=== PATIENT | female | born 1995 | race Asian ===

== ENCOUNTER 2023-01-21 13:08 | Inpatient (IN) ==
--- NOTE | 2023-01-21 13:31 | ED Triage Note ---
Date of Service January 21, 2023 History of Present Illness This patient was briefly evaluated while in triage. An abbreviated physical exam was performed. This patient is a 27-year-old Female who presents to the ED for evaluation of outpatient hemoglobin of 5.6. She feels fatigued, chest pain, body aches, sy mptoms have been ongoing for about a month. Sent from [facility] [[email or web address] History of blood transfusion 8 months ago. Denies any active bleeding but has had colonoscopy in past. Physical Exam CONSTITUTIONAL: mildly fatigued appearing, otherwise resting comfortably. SKIN: Somewhat pale, warm, dry CARDIAC: regular rate and rhythm RESPIRATORY: in no respiratory distress, lungs clear to auscultation ABDOMEN: No tenderness Initial orders for labs and / or imaging were placed and patient was placed in the waiting area until a bed is available. Please see further documentation for the full ED course.
[2023-01-21 14:12] LABS: Hematocrit (blood only) 19.4 % (37.0-47.0); Hemoglobin 5.6 g/dl (12.0-16.0); Mean Corpuscular Hemoglobin 16.3 pg (25.0-34.0); Mean Corpuscular Hgb Conc 28.9 g/dL (32.0-36.0); Mean Corpuscular Volume 56.4 fL (80.0-100.0); Platelet Count 183 K/uL (130-400); RDW Coefficient of Variation 20.3 % (11.5-14.5); RDW Standard Deviation 38.6 fL (36.4-46.3); Red Blood Count 3.44 M/uL (4.20-5.40); White Blood Count 7.07 K/ul (4.8-10.8)
[2023-01-21 14:22] LABS: INR 1.1 (0.9-1.1); Partial Thromboplastin Ratio 0.8; Partial Thromboplastin Time 23.1 Seconds (21.0-31.0); Prothrombin Time 11.7 Seconds (9.0-12.0)
[2023-01-21 14:30] LABS: Albumin Level 3.9 gm/dl (3.4-5.0); Anion Gap 5 (3-11); Bilirubin,Total 0.4 mg/dl (0.2-1.0); Calcium 8.4 mg/dl (8.6-10.3); Carbon Dioxide 25 mmol/L (21-32); Chloride 106 mmol/L (98-107); Potassium 3.6 mmol/L (3.5-5.1); Sodium 136 mmol/L (136-145)
[2023-01-21 14:36] LABS: Alanine Aminotransferase 8 U/L (7-52); Albumin Globulin Ratio 1.4 (0.9-2); Alkaline Phosphatase 53 U/L (34-104); Aspartate Aminotransferase 20 U/L (13-39); BUN Creatinine Ratio 12.1 (10-20); Blood Urea Nitrogen 8 mg/dl (6-23); Creatinine Clr Calc Pharmacy 82.6 ml/min; Est GFR (African American) 141.3 ml/min; Est GFR (Non-African American) 121.9 ml/min; Globulin 2.8 gm/dl (2.5-4.0); Glucose 79 mg/dl (70-99(Fasting)); Total Protein 6.7 gm/dl (6.0-8.3); Troponin I High Sensitivity < 2.3 pg/ml (0-14)
[2023-01-21 14:37] LABS: Basophils # (auto) 0.02 K/uL (0-0.2); Basophils % (auto) 0.3 %; Eosinophils # (auto) 0.11 K/uL (0-0.50); Eosinophils % (auto) 1.6 %; Hypochromasia Present; Immature Granulocytes # (auto) 0.01 K/uL (0.01-0.20); Immature Granulocytes % (auto) 0.1 %; Lymphocytes # (auto) 1.07 K/uL (1.2-3.4); Lymphocytes % (auto) 15.1 %; Microcytosis Present; Monocytes # (auto) 0.33 K/uL (0.11-0.59); Monocytes % (auto) 4.7 %; Neutrophils # (auto) 5.53 K/uL (1.40-6.50); Neutrophils % (auto) 78.2 %; Ovalocytes 1+; Polychromasia 1+; Tear Drop Cells 1+
--- NOTE | 2023-01-21 15:16 | Electrocardiogram Report ---
Test Reason : Blood Pressure : / mmHG Vent. Rate : 089 BPM Atrial Rate : 089 BPM P-R Int : 128 ms QRS Dur : 068 ms QT Int : 358 ms P-R-T Axes : 047 072 054 degrees QTc Int : 435 ms Poor data quality, interpretation may be adversely affected Normal sinus rhythm Normal ECG No previous ECGs available Confirmed by Pranav Waller ([id number]) on 01/21/2023 3:16:10 PM Referred By: Confirmed By:Pranav Waller
[2023-01-21] MEDS ORDERED: SODIUM CHLORIDE 0.9% 250 ML IV PRN (16:55)
[2023-01-21] MEDS ORDERED: SODIUM CHLORIDE 0.9% 1000ML 1,000 ML IV SCH (17:00)
[2023-01-21] MEDS ORDERED: OPTIRAY 350 100ml IV ONE (17:17)
--- NOTE | 2023-01-21 17:34 | Emergency Department Note ---
Impression & Plan Symptomatic anemia, Cholelithiasis ED Provider Note ED Provider Note NAME: SHAMAR HOANG AGE:27 SEX: Female : 1995 ARRIVES VIA: Private vehicle INFORMANT: Patient ED PROVIDER(s): Laila Brody DO CHIEF COMPLAINT: Abnormal labs, referred by [facility] HPI: This is a 27-year-old female who presents emergency department after being referred here by [facility] due to abnormal outpatient labs showing significant anemia. Patient states she does have a prior history of anemia and states her hemoglobin is usually between 9 and 10. She denies any recent black or bloody stools, heavy periods, frequent nosebleeds, or other bleeding history. Denies any recent trauma. Patient states she did require a blood transfusion several years ago following surgery. She states she has had intermittent chest pain, shortness of breath, and abdominal pain. She denies any recent illness. She states she has been getting lightheaded/dizzy with change in position. Patient states she does have hx of GERD and states an acid reducing medication daily. PAST MEDICAL HISTORY:See Below PAST SURGICAL HISTORY:See Below FAMILY HISTORY:See Below SOCIAL HISTORY:See Below HOME MEDICATIONS:See Below ALLERGIES:See Below VITALS:See Below PHYSICAL EXAMINATION: GENERAL: alert, well appearing, well nourished, no distress, non-toxic EYE EXAM: normal conjunctiva, PERRL and EOM's grossly intact OROPHARYNX: no exudate, no erythema, lips, buccal mucosa, and tongue normal and mucous membranes are moist NECK: supple, no nuchal rigidity, no adenopathy, non-tender LUNGS: Clear to auscultation. Normal chest wall mechanics, no w/r/r HEART: no murmurs, S1 normal and S2 normal ABDOMEN: abdomen soft, non-tender, normo-active bowel sounds, no masses, no rebound or guarding. BACK: Back is symmetrical on inspection and there is no deformity, no midline tenderness, no CVA tenderness. SKIN: no rashes, petechiae, orbruising, pale UPPER EXTREMITIES: upper extremities are grossly normal. FROM, nml pulses b/l. LOWER EXTREMITIES: No pitting edema. FROM, nml pulses b/l. NEURO EXAM: Normal sensorium, cranial nerves II-XII grossly intact, normal speech, no facial droop,nogross weakness of arms, no gross weakness of legs. Gross sensation intact. No ataxia. Vital Signs: reviewed and remarkable Differential Diagnosis: anemia, dehydration, MICHAEL, electrolyte abnormality, GI bleed, abnormal menses, retroperitoneal bleed, occult traumatic injury, as well as others were considered MEDICAL DECISION MAKING: THis is a 27 yo female referred by [facility] due to abnormal outpatient labs revealed significant anemia. Labs drawn and sent, IV established, EKG performed and interpreted by me, and patient placed on tele. Repeat labs here reassuring. We discussed all results at bedside. No obvious source based on discussion with patient. HX of anemia with Hgb 9-10. We discussed CT imaging which was performed and was reassuring. We discussed blood transfusion and patient verbalized understanding and was in agreement. Prior transfusion without complication. Patient signed blood consent at bedside and 2 units pRBC's ordered. CAse discussed with hospitalist for additional evaluation. Consultation(s): 1725: DIscussed with Dr. Joyce for admission. VS stable. Blood ordered. ER Treatment Provided: See below Diagnostics Interpreted By Me: -ECG: NSR at 89, nml axis, nml intervals, no acute ST/T wave changes -Cardiac Monitoring: An order was placed for continuous cardiac monitoring. The monitor shows a rate of 90 with normal sinus rhythm. -Laboratory studies: As stated above and show below. -Imaging studies: [] Triage Nursing Note Reviewed Prior/Outside Records Reviewed Critical Care: Critical care of 35 min performed to assess and manage high likelihood of life- threatening anemia, involving labs and imaging performed with assessment to evaluate anemia diagnosis with frequent reassessment. This time includes bedside time, treatment discussions with patient/family/consultants, documentati on time and excludes procedure time. Past Med/Surg History Surgical History (Updated 01/21/23 @ 18:29 by Sanjay Joyce MD) History of appendectomy S/P partial resection of colon Allergies Allergies Allergy/AdvReac Type Severity Reaction Status Date / Time No Known Allergies Allergy Verified 01/21/23 18:02 Home Meds Home Medications Medication Instructions Recorded Confirmed Acid Ethnoarchaeology Professor Tablet 1 tab PO DIRECTED PRN 01/21/23 01/21/23 HEARTBURN/INDIGESTION Results & Data (ED) Vital Signs Vital Signs - 24 hr 01/21/23 13:25 01/21/23 15:42 01/21/23 15:51 Temperature 36.8 C Temperature Source Temporal Artery Scan Pulse Rate 102 H 87 Pulse Rate [Apical] 90 Pulse Rhythm Pulse Rhythm [Apical] Regular Pulse Strength Pulse Strength [Apical] Normal Respiratory Rate 18 18 Respiratory Effort / Characteristics Non-Labored Respiratory Depth Normal Respiratory Pattern Regular Blood Pressure 100/55 L Blood Pressure [Left Arm] 120/71 Blood Pressure Mean 70 Blood Pressure Mean [Left Arm] 87 Pulse Oximetry 99 100 Oxygen Delivery Method Room Air Room Air Oxygen Flow Rate Sepsis Recent Fever Within 48 Hours No Sepsis New/Unexplained Change in Mental Status No Sepsis Action Taken by Nursing No Action Required 01/21/23 17:51 01/21/23 17:58 01/21/23 18:15 Temperature 37.1 C 37.1 C 37.0 C Temperature Source Oral Oral Oral Pulse Rate 102 H 106 H Pulse Rate [Apical] 98 H Pulse Rhythm Pulse Rhythm [Apical] Pulse Strength Pulse Strength [Apical] Respiratory Rate 20 17 17 Respiratory Effort / Characteristics Non-Labored Spontaneous Respiratory Depth Normal Respiratory Pattern Blood Pressure 107/68 114/77 Blood Pressure [Left Arm] 107/68 Blood Pressure Mean 81 89 Blood Pressure Mean [Left Arm] 81 Pulse Oximetry 100 100 100 Oxygen Delivery Method Room Air Oxygen Flow Rate 0 Sepsis Recent Fever Within 48 Hours Sepsis New/Unexplained Change in Mental Status Sepsis Action Taken by Nursing 01/21/23 16:00 01/21/23 16:30 01/21/23 18:30 Temperature 36.8 C Temperature Source Oral Pulse Rate 86 91 H 105 H Pulse Rate [Apical] Pulse Rhythm Regular Pulse Rhythm [Apical] Pulse Strength Normal Pulse Strength [Apical] Respiratory Rate 19 20 20 Respiratory Effort / Characteristics Respiratory Depth Respiratory Pattern Blood Pressure 101/64 111/75 121/76 Blood Pressure [Left Arm] Blood Pressure Mean 76 87 91 Blood Pressure Mean [Left Arm] Pulse Oximetry 100 100 100 Oxygen Delivery Method Oxygen Flow Rate Sepsis Recent Fever Within 48 Hours Sepsis New/Unexplained Change in Mental Status Sepsis Action Taken by Nursing 01/21/23 20:42 01/21/23 19:00 01/21/23 20:04 Temperature 37.6 C H 36.9 C Temperature Source Oral Oral Pulse Rate 99 H 102 H 99 H Pulse Rate [Apical] Pulse Rhythm Regular Pulse Rhythm [Apical] Pulse Strength Normal Pulse Strength [Apical] Respiratory Rate 23 19 Respiratory Effort / Characteristics Respiratory Depth Respiratory Pattern Blood Pressure 112/72 113/76 Blood Pressure [Left Arm] Blood Pressure Mean 85 88 Blood Pressure Mean [Left Arm] Pulse Oximetry 100 100 Oxygen Delivery Method Oxygen Flow Rate Sepsis Recent Fever Within 48 Hours Sepsis New/Unexplained Change in Mental Status Sepsis Action Taken by Nursing 01/21/23 20:00 01/21/23 20:38 01/21/23 20:58 Temperature 37.6 C H 37.7 C H Temperature Source Oral Oral Pulse Rate 96 H 92 H 94 H Pulse Rate [Apical] Pulse Rhythm Regular Regular Pulse Rhythm [Apical] Pulse Strength Normal Normal Pulse Strength [Apical] Respiratory Rate 18 23 18 Respiratory Effort / Characteristics Respiratory Depth Respiratory Pattern Blood Pressure 115/79 112/72 108/63 Blood Pressure [Left Arm] Blood Pressure Mean 91 85 78 Blood Pressure Mean [Left Arm] Pulse Oximetry 100 100 100 Oxygen Delivery Method Oxygen Flow Rate Sepsis Recent Fever Within 48 Hours Sepsis New/Unexplained Change in Mental Status Sepsis Action Taken by Nursing 01/21/23 21:14 Temperature 38.0 C H Temperature Source Oral Pulse Rate 94 H Pulse Rate [Apical] Pulse Rhythm Regular Pulse Rhythm [Apical] Pulse Strength Normal Pulse Strength [Apical] Respiratory Rate 19 Respiratory Effort / Characteristics Respiratory Depth Respiratory Pattern Blood Pressure 119/79 Blood Pressure [Left Arm] Blood Pressure Mean 92 Blood Pressure Mean [Left Arm] Pulse Oximetry 100 Oxygen Delivery Method Oxygen Flow Rate Sepsis Recent Fever Within 48 Hours Sepsis New/Unexplained Change in Mental Status Sepsis Action Taken by Nursing Laboratory Data 01/21/23 13:49 01/21/23 13:49 Lab Results 01/21/23 01/21/23 01/21/23 Range/Units 13:49 13:49 13:49 WBC 7.07 (4.8-10.8) K/ul RBC 3.44 L (4.20-5.40) M/uL Hgb 5.6 L* (12.0-16.0) g/dl Hct 19.4 L* (37.0-47.0) % MCV 56.4 L (80.0-100.0) fL MCH 16.3 L (25.0-34.0) pg MCHC 28.9 L (32.0-36.0) g/dL RDW Std Deviation 38.6 (36.4-46.3) fL RDW Coeff of Dorys 20.3 H (11.5-14.5) % Plt Count 183 (130-400) K/uL Immature Gran % (Auto) 0.1 % Neut % (Auto) 78.2 % Lymph % (Auto) 15.1 % Monroe % (Auto) 4.7 % Eos % (Auto) 1.6 % Baso % (Auto) 0.3 % Neut # (Auto) 5.53 (1.40-6.50) K/uL Lymph # (Auto) 1.07 L (1.2-3.4) K/uL Monroe # (Auto) 0.33 (0.11-0.59) K/uL Eos # (Auto) 0.11 (0-0.50) K/uL Baso # (Auto) 0.02 (0-0.2) K/uL Immature Gran # (Auto) 0.01 (0.01-0.20) K/uL Polychromasia 1+ Hypochromasia Present Microcytosis Present Tear Drop Cells 1+ Ovalocytes 1+ PT 11.7 (9.0-12.0) Seconds INR 1.1 (0.9-1.1) APTT 23.1 (21.0-31.0) Seconds PTT Ratio 0.8 Sodium (136-145) mmol/L Potassium (3.5-5.1) mmol/L Chloride (98-107) mmol/L Carbon Dioxide (21-32) mmol/L Anion Gap (3-11) BUN (6-23) mg/dl Creatinine (0.6-1.2) mg/dl Est Cr Clr Drug Dosing ml/min Est GFR ( Amer) ml/min Est GFR (Non-Af Amer) ml/min BUN/Creatinine Ratio (10-20) Glucose (70-99(Fasting)) mg/dl Calcium (8.6-10.3) mg/dl Total Bilirubin (0.2-1.0) mg/dl AST (13-39) U/L ALT (7-52) U/L Alkaline Phosphatase (34-104) U/L Troponin I High Sens (0-14) pg/ml Total Protein (6.0-8.3) gm/dl Albumin (3.4-5.0) gm/dl Globulin (2.5-4.0) gm/dl Albumin/Globulin Ratio (0.9-2) POC Ur Test (NEG) SARS-CoV-2 (PCR) (Negative) Influenza Type A (PCR) (Neg) Influenza Type B (PCR) (Neg) RSV (RT-PCR) (Neg) Blood Type O Positive Blood Type Recheck Antibody Screen NEGATIVE Crossmatch See Detail 01/21/23 01/21/23 01/21/23 Range/Units 13:49 14:04 18:07 WBC (4.8-10.8) K/ul RBC (4.20-5.40) M/uL Hgb (12.0-16.0) g/dl Hct (37.0-47.0) % MCV (80.0-100.0) fL MCH (25.0-34.0) pg MCHC (32.0-36.0) g/dL RDW Std Deviation (36.4-46.3) fL RDW Coeff of Dorys (11.5-14.5) % Plt Count (130-400) K/uL Immature Gran % (Auto) % Neut % (Auto) % Lymph % (Auto) % Monroe % (Auto) % Eos % (Auto) % Baso % (Auto) % Neut # (Auto) (1.40-6.50) K/uL Lymph # (Auto) (1.2-3.4) K/uL Monroe # (Auto) (0.11-0.59) K/uL Eos # (Auto) (0-0.50) K/uL Baso # (Auto) (0-0.2) K/uL Immature Gran # (Auto) (0.01-0.20) K/uL Polychromasia Hypochromasia Microcytosis Tear Drop Cells Ovalocytes PT (9.0-12.0) Seconds INR (0.9-1.1) APTT (21.0-31.0) Seconds PTT Ratio Sodium 136 (136-145) mmol/L Potassium 3.6 (3.5-5.1) mmol/L Chloride 106 (98-107) mmol/L Carbon Dioxide 25 (21-32) mmol/L Anion Gap 5 (3-11) BUN 8 (6-23) mg/dl Creatinine 0.66 (0.6-1.2) mg/dl Est Cr Clr Drug Dosing 82.6 ml/min Est GFR ( Amer) 141.3 ml/min Est GFR (Non-Af Amer) 121.9 ml/min BUN/Creatinine Ratio 12.1 (10-20) Glucose 79 (70-99(Fasting)) mg/dl Calcium 8.4 L (8.6-10.3) mg/dl Total Bilirubin 0.4 (0.2-1.0) mg/dl AST 20 (13-39) U/L ALT 8 (7-52) U/L Alkaline Phosphatase 53 (34-104) U/L Troponin I High Sens < 2.3 (0-14) pg/ml Total Protein 6.7 (6.0-8.3) gm/dl Albumin 3.9 (3.4-5.0) gm/dl Globulin 2.8 (2.5-4.0) gm/dl Albumin/Globulin Ratio 1.4 (0.9-2) POC Ur Test NEG (NEG) SARS-CoV-2 (PCR) NEGATIVE (Negative) Influenza Type A (PCR) Negative (Neg) Influenza Type B (PCR) Negative (Neg) RSV (RT-PCR) Negative (Neg) Blood Type Blood Type Recheck Antibody Screen Crossmatch 01/21/23 Range/Units 20:34 WBC (4.8-10.8) K/ul RBC (4.20-5.40) M/uL Hgb (12.0-16.0) g/dl Hct (37.0-47.0) % MCV (80.0-100.0) fL MCH (25.0-34.0) pg MCHC (32.0-36.0) g/dL RDW Std Deviation (36.4-46.3) fL RDW Coeff of Dorys (11.5-14.5) % Plt Count (130-400) K/uL Immature Gran % (Auto) % Neut % (Auto) % Lymph % (Auto) % Monroe % (Auto) % Eos % (Auto) % Baso % (Auto) % Neut # (Auto) (1.40-6.50) K/uL Lymph # (Auto) (1.2-3.4) K/uL Monroe # (Auto) (0.11-0.59) K/uL Eos # (Auto) (0-0.50) K/uL Baso # (Auto) (0-0.2) K/uL Immature Gran # (Auto) (0.01-0.20) K/uL Polychromasia Hypochromasia Microcytosis Tear Drop Cells Ovalocytes PT (9.0-12.0) Seconds INR (0.9-1.1) APTT (21.0-31.0) Seconds PTT Ratio Sodium (136-145) mmol/L Potassium (3.5-5.1) mmol/L Chloride (98-107) mmol/L Carbon Dioxide (21-32) mmol/L Anion Gap (3-11) BUN (6-23) mg/dl Creatinine (0.6-1.2) mg/dl Est Cr Clr Drug Dosing ml/min Est GFR ( Amer) ml/min Est GFR (Non-Af Amer) ml/min BUN/Creatinine Ratio (10-20) Glucose (70-99(Fasting)) mg/dl Calcium (8.6-10.3) mg/dl Total Bilirubin (0.2-1.0) mg/dl AST (13-39) U/L ALT (7-52) U/L Alkaline Phosphatase (34-104) U/L Troponin I High Sens (0-14) pg/ml Total Protein (6.0-8.3) gm/dl Albumin (3.4-5.0) gm/dl Globulin (2.5-4.0) gm/dl Albumin/Globulin Ratio (0.9-2) POC Ur Test (NEG) SARS-CoV-2 (PCR) (Negative) Influenza Type A (PCR) (Neg) Influenza Type B (PCR) (Neg) RSV (RT-PCR) (Neg) Blood Type Blood Type Recheck O Positive Antibody Screen Crossmatch Administered Medications Acetaminophen (Acetaminophen 325 Mg Tab) 650 mg PO Q6H PRN PRN Reason: pain, before xfusion Stop: 02/20/23 21:29 Last Admin: 01/21/23 21:29 Dose: 650 mg Documented By: OAM Sodium Chloride (Nss 1000ml) 1,000 mls @ 80 mls/hr IV .[id number] MORALES Stop: 02/20/23 16:59 Last Admin: 01/21/23 17:50 Dose: 80 mls/hr Documented By: LKD Discontinued Medications Famotidine 20 mg/ Syringe 5 mls @ 2.5 mls/min IV NOW ONE Stop: 01/21/23 18:31 Last Admin: 01/21/23 18:59 Dose: 2.5 mls/min Documented By: MAURO Ioversol (Optiray 350 100ml) 82 ml IV ONCE ONE Stop: 01/21/23 17:18 Last Admin: 01/21/23 17:17 Dose: 82 ml Documented By: [facility] Imaging Data Radiologist's Impression: Abdomen/Pelvis CT 01/21/23 16:[address] WITH IV CONTRAST CT DOSE: 235.09 mGy.cm HISTORY: Acute anemia with generalized abdominal pain anemia, abd pain TECHNIQUE: Multiaxial CT images of the abdomen and pelvis were performed fo llowing the IV administration of 82 cc of Optiray, A dose lowering technique was utilized adhering to the principles of ALARA. COMPARISON STUDY: None. FINDINGS: Clear lung bases. No pneumatosis or pneumoperitoneum. The spleen is mildly enlarged measuring up to 13 cm. Unremarkable pancreas, adrenal glands and liver. Patency of the hepatic and portal veins. Stone filled gallbladder. 1.2 cm stone noted within the gallbladder neck/proximal cystic duct. The gallbladder is distended. No significant wall thickening or pericholecystic fluid. There is mild intrahepatic biliary ductal prominence. The common bile duct measures 6 mm. No choledocholithiasis identified. Unremarkable kidneys. No hydronephrosis. Urinary bladder wall thickening with partial distention. Unremarkable uterus. Cystic foci of the left ovary measuring up to 2.7 cm. Probable associated hydrosalpinx. Aorta and IVC are unremarkable. No lymphadenopathy identified. Postoperative changes of the bowel with evidence of prior resection. Trace free pelvic fluid. The appendix is reportedly surgically absent. No acute fracture. 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 IMPRESSION: 1. No bowel obstruction or bowel wall thickening. 2. Stone filled distended gallbladder with large stone within the gallbladder neck/proximal cystic duct. Correlation with right upper quadrant abdominal ultrasound recommended to exclude developing acute cholecystitis. 3. Mild intrahepatic biliary ductal prominence with the common bile duct measuring within the upper limits of normal. No choledocholithiasis identified. 3. Mild splenomegaly. 4. Postoperative changes of the bowel. 5. Left ovarian cyst/follicles with probable hydrosalpinx. ACT 112: Negative or not required by law. The above report was generated using voice recognition software. It may contain grammatical, syntax or spelling errors. Electronically signed by: Vazquez Oliveira M.D. 01/21/2023 5:33 PM Discharge Plan Visit Data Chief Complaint: Abnormal Labs/Diagnostic Testing Stated Complaint: WEAKNESS,DIZZINESS, [facility] REF OVER ED Provider: Laila Brody Discharge Problem: Symptomatic anemia, Cholelithiasis Patient Disposition: Being Evaluated by Hospitalist Forms Stand Alone Forms: [facility] Prescriptions Prescriptions: No Action Acid Ethnoarchaeology Professor Tablet 1 tab PO DIRECTED PRN (Reason: HEARTBURN/INDIGESTION) Rx Instructions: PER PT "BROUGHT MEDICINE FROM HOME, MARKO". PT UNSURE WHICH FIRST CRUSHER OR WHICH STRENGTH OF MEDICATION. Referrals Referrals: [facility] [Primary Care Provider] -
--- NOTE | 2023-01-21 17:35 | CT Scan Report ---
ABDOMEN AND PELVIS CT WITH IV CONTRAST CT DOSE: 235.09 mGy.cm HISTORY: Acute anemia with generalized abdominal pain anemia, abd pain TECHNIQUE: Multiaxial CT images of the abdomen and pelvis were performed following the IV administrat ion of 82 cc of Optiray, A dose lowering technique was utilized adhering to the principles of ALARA. COMPARISON STUDY: None. FINDINGS: Clear lung bases. No pneumatosis or pneumoperitoneum. The spleen is mildly enlarged measuri ng up to 13 cm. Unremarkable pancreas, adrenal glands and liver. Patency of the hepatic and portal ve ins. Stone filled gallbladder. 1.2 cm stone noted within the gallbladder neck/proximal cystic duct. T he gallbladder is distended. No significant wall thickening or pericholecystic fluid. There is mild i ntrahepatic biliary ductal prominence. The common bile duct measures 6 mm. No choledocholithiasis esequiel ntified. Unremarkable kidneys. No hydronephrosis. Urinary bladder wall thickening with partial distention. Unr emarkable uterus. Cystic foci of the left ovary measuring up to 2.7 cm. Probable associated hydrosalp inx. Aorta and IVC are unremarkable. No lymphadenopathy identified. Postoperative changes of the bowel with evidence of prior resection. Trace free pelvic fluid. The arina endix is reportedly surgically absent. No acute fracture. Minimal avascular necrosis of the femoral h manuelito. IMPRESSION: 1. No bowel obstruction or bowel wall thickening. 2. Stone filled distended gallbladder with large stone within the gallbladder neck/proximal cystic du ct. Correlation with right upper quadrant abdominal ultrasound recommended to exclude developing acut e cholecystitis. 3. Mild intrahepatic biliary ductal prominence with the common bile duct measuring within the upper l imits of normal. No choledocholithiasis identified. 3. Mild splenomegaly. 4. Postoperative changes of the bowel. 5. Left ovarian cyst/follicles with probable hydrosalpinx. ACT 112: Negative or not required by law. The above report was generated using voice recognition software. It may contain grammatical, syntax o r spelling errors. Electronically signed by: Vazquez Oliveira M.D. 01/21/2023 5:33 PM
--- NOTE | 2023-01-21 18:15 | History & Physical Report ---
Date of Service January 21, 2023 Assessment & Plan (1) Symptomatic anemia: Plan: Chronic anemia Patient denies melena/bright red blood per rectum, epistaxis and other bleeding CTA/P without signs of acute bleeding. Stone filled gallbladder without evidence of acute obstruction. No transaminitis, no right upper quadrant tenderness on exam. No signs of extravasation or active bleeding. Profoundly microcytic Vegetarian diet, has previously been on iron and has required blood transfusions but had stopped iron due to constipation/stomach intolerance Is with splenomegaly, no known history of G6PD/hemoglobinopathies. Peripheral smear pending Does have epigastric tenderness to palpation, and reports she has had liquid brown and sometimes foamy diarrhea in the last week Occult stool pending Continue PPI will increase to twice daily as needed 2 units ordered for transfusion, H&H between units Hemoglobin transfusion threshold 7.0 Given that she is having some lightheadedness and dizziness but is otherwise asymptomatic at 5.6 suspect that this has developed over a long period of time Iron studies pending, will likely benefit her from serial Venofer infusions while inpatient. B12/folate pending (2) GERD (gastroesophageal reflux disease): Plan DVT prophylaxis: Pharmacal prophylaxis contraindicated in setting of bleed Diet: Clears Disposition: PCU for severe symptomatic anemia CODE STATUS: Full code History of Present Illness Primary Care Provider: [facility] Meeta is a 27-year-old female with a past medical history of chronic anemia who presents with lightheadedness and who was referred for a hemoglobin less than 7 on an outpatient check by [facility]. 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 Is from [facility] where all her prior medical care was. Has only been in [place] for 2 months. PReviously recieved blood 3x. 1x after surgery, 2x in the past but does not see hematology. Per pt had not had an enemia workup in the past. Has a history of appendectomy, reportedly had a bowel neck during surgery which required a partial colon resection which was otherwise uncomplicated but did require 1 unit of blood to be given at that time. Outside of surgery she has required 2 blood transfusions for chronic anemia. She reports she was on iron previously, but has taken this intermittently and not recently due to stomach intolerance. She has not had any syncope or chest pain, but has felt lightheaded for about 1 month. She has had foamy brown diarrhea for 1 week, but no melena or blood. She does have epigastric tenderness. She is a vegetarian does not eat meat. She denies shortness of breath, difficulty breathing. No numbness/tingling. Denies other medical problems and chronic medications. Medical History: Reviewed Medications: Reviewed Surgical History: Reviewed Family history: Reviewed Allergies: Reviewed Social History: No tobacco/alcohol use Code Status: Full code Allergies Allergy/AdvReac Type Severity Reaction Status Date / Time No Known Allergies Allergy Verified 01/21/23 18:02 Home Medications Medication Instructions Recorded Confirmed Type Acid Director Of Corporate Communications Tablet 1 tab PO DIRECTED PRN 01/21/23 01/21/23 History HEARTBURN/INDIGESTION Past Med/Surg History Surgical History (Updated 01/21/23 @ 18:29 by Sanjay Joyce MD) History of appendectomy S/P partial resection of colon Review of Systems Review of Systems: All systems reviewed & are unremarkable except as noted in HPI & below Physical Exam Physical Exam: General: A&Ox3. NAD. Cooperative. HEENT: Atraumatic, normocephalic. Pale. Eom intact. vision/hearing intact Pulm: CTAB A&P. -wheezes, -rales, -rhonchi. Symmetrical chest rise. No increased work of breathing. No respiratory distress. Cardiac: RRR, -mrg. Radial pulses intact and symmetrical. Abdominal: +epigastric ttp. otherwise Nontender, nondistended, soft. BS present. Ext: warm, dry. Moves all extremities equally Results & Data Results & Data Vital Signs (Past 12 Hours) Vital Signs Temp Pulse Pulse Resp BP BP Pulse Ox 01/21/23 17:58 37.1 C 102 H 17 107/68 100 01/21/23 17:51 37.1 C 98 H 20 107/68 100 01/21/23 15:51 87 01/21/23 15:42 90 18 120/71 100 01/21/23 13:25 36.8 C 102 H 18 100/55 L 99 O2 Del Method O2 Flow Rate 01/21/23 17:58 0 01/21/23 17:51 Room Air 01/21/23 15:51 01/21/23 15:42 Room Air 01/21/23 13:25 Room Air PG Care Time/CCT Total # of Minutes Spent Total Time Spent with Patient: Total time spent is greater than 50% in coordination of care (as documented) at patient's floor/unit and/or counseling patient: Coding Level of Care Code 54249 INT INP/OBS CARE Diagnoses Symptomatic anemia D64.9 GERD (gastroesophageal reflux disease) K21.9
[2023-01-21] MEDS ORDERED: FAMOTIDINE 20 MG in SYRINGE 3 ML IV ONE (18:30)
[2023-01-21 19:37] LABS: Influenza A virus by PCR Negative (Neg); Influenza B virus by PCR Negative (Neg); RSV by PCR Negative (Neg); SARS CoV2 RNA(COVID-19) Ceph NEGATIVE (Negative)
[2023-01-21] MEDS ORDERED: ACETAMINOPHEN 325 MG TAB PO PRN (21:23)
[2023-01-21 22:31] LABS: Hemoglobin 8.4 g/dl (12.0-16.0)
[2023-01-21 23:01] LABS: Albumin Level 3.8 gm/dl (3.4-5.0); Bilirubin Direct 0.4 mg/dl (0-0.2); Bilirubin,Total 1.7 mg/dl (0.2-1.0); Total Protein 6.6 gm/dl (6.0-8.3)
[2023-01-21] MEDS: PANTOprazole 40 MG in SYRINGE 0 ML IV SCH (23:42)
[2023-01-21 23:43] LABS: Reticulocyte % 0.7 % (0.5-2.0); Reticulocytes # 0.03 10^6/uL (0.02-0.10)
[2023-01-22 02:26] LABS: Ferritin 1.7 ng/ml (8-388)
[2023-01-22 02:55] LABS: Iron < 10 mcg/dl (35-150); Unsaturated Iron Binding Cap 443 mcg/dl (155-355)
[2023-01-22 04:44] LABS: Hematocrit (blood only) 24.5 % (37.0-47.0); Hemoglobin 7.6 g/dl (12.0-16.0)
[2023-01-22 05:01] LABS: BUN Creatinine Ratio 7.4 (10-20); Calcium 8.2 mg/dl (8.6-10.3); Creatinine Clr Calc Pharmacy 80.2 ml/min; Est GFR (African American) 139.9 ml/min; Est GFR (Non-African American) 120.7 ml/min; Potassium 3.6 mmol/L (3.5-5.1)
--- NOTE | 2023-01-22 07:47 | Hospitalist Progress Note ---
Date of Service January 22, 2023 Assessment & Plan (1) Symptomatic anemia: (2) GERD (gastroesophageal reflux disease): Plan Chronic anemia Patient denies melena/bright red blood per rectum, epistaxis and other bleeding CTA/P without signs of acute bleeding. Stone filled gallbladder without evidence of acute obstruction. No transaminitis, no right upper quadrant tenderness on exam. No signs of extravasation or active bleeding. Profoundly microcytic Vegetarian diet, has previously been on iron and has required blood transfusions but had stopped iron due to constipation/stomach intolerance Is with splenomegaly, no known history of G6PD/hemoglobinopathies. Peripheral smear pending Does have epigastric tenderness to palpation, and reports she has had liquid brown and sometimes foamy diarrhea in the last week Occult stool pending Continue PPI will increase to twice daily as needed 2 units ordered for transfusion, H&H between units Hemoglobin transfusion threshold 7.0 Given that she is having some lightheadedness and dizziness but is otherwise asymptomatic at 5.6 suspect that this has developed over a long period of time. Iron studies revealed a low iron and low ferritin. Will start on Venofer 300 mg B12/folate normal. DVT prophylaxis: Pharmacal prophylaxis contraindicated in setting of bleed Diet: Clears Disposition: PCU for severe symptomatic anemia CODE STATUS: Full code Admission and Anticipated Discharge Date Admission Date: January 21, 2023 Subjective Patient was seen bedside this morning. States that she had anemia before and has been occurring every so often since her abdominal surgery in 2012. She states that she used to take iron supplements but stopped taking them due to having dark stool as well and hard stool that was difficult to pass. She tries to supplement iron in her diet. Last blood transfusion was 4 to 5 years ago. Today she states that she feels weak and tired. No other issues or concerns at this time. Review of Systems Review of Systems: All systems reviewed & are unremarkable except as noted in Subjective Physical Exam Constitutional: WD/WN, vitals as above Eyes: PERRL, conjunctivae normal, anicteric sclerae ENMT: external ear and nose normal, oropharynx normal Respiratory: normal respiratory effort, lungs clear to auscultation Cardiovascular: RRR, no murmur, no edema Gastrointestinal (Abdomen): Inspection/Auscultation: normal bowel sounds Percussion/Palpation: abdomen soft; abdomen nontender Multiple well-healing surgery scars on the abdominal wall Musculoskeletal: no cyanosis or clubbing, extremities motor strength 5/5 Skin: no rashes, warm and dry Psychiatric: A+Ox3, euthymic affect Results & Data Results & Data Vital Signs (Past 12 Hours) Vital Signs Temp Pulse Pulse Resp BP BP Pulse Ox 01/22/23 06:57 36.8 C 72 17 94/59 L 99 01/22/23 04:17 36.7 C 75 15 96/64 L 100 01/22/23 02:50 100 H 01/21/23 22:39 37.5 C 93 H 18 108/72 100 01/21/23 22:30 37.3 C 81 20 108/72 100 01/21/23 21:14 38.0 C H 94 H 19 119/79 100 01/21/23 20:58 37.7 C H 94 H 18 108/63 100 01/21/23 20:38 37.6 C H 92 H 23 112/72 100 01/21/23 20:00 96 H 18 115/79 100 01/21/23 20:04 99 H 01/21/23 20:42 37.6 C H 99 H 23 112/72 100 O2 Del Method 01/22/23 06:57 Room Air 01/22/23 04:17 Room Air 01/22/23 02:50 01/21/23 22:39 Room Air 01/21/23 22:30 Room Air 01/21/23 21:14 01/21/23 20:58 01/21/23 20:38 01/21/23 20:00 01/21/23 20:04 01/21/23 20:42
[2023-01-22] MEDS: PANTOprazole 40 MG in SYRINGE 0 ML IV SCH (09:04)
[2023-01-22] MEDS ORDERED: IRON SUCROSE 300 MG in SODIUM CHLORIDE 0.9% 250 ML IV ONE (11:00)
[2023-01-22 11:28] LABS: Hematocrit (blood only) 25.5 % (37.0-47.0); Hemoglobin 7.8 g/dl (12.0-16.0)
--- NOTE | 2023-01-22 17:24 | Discharge Summary ---
Date of Service January 22, 2023 Admission HPI Per Admitting Provider Meeta is a 27-year-old female with a past medical history of chronic anemia who presents with lightheadedness and who was referred for a hemoglobin less than 7 on an outpatient check by [employer]. 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 Is from [facility] where all her prior medical care was. Has only been in [place] for 2 months. PReviously recieved blood 3x. 1x after surgery, 2x in the past but does not see hematology. Per pt had not had an enemia workup in the past. Has a history of appendectomy, reportedly had a bowel neck during surgery which required a partial colon resection which was oth erwise uncomplicated but did require 1 unit of blood to be given at that time. Outside of surgery she has required 2 blood transfusions for chronic anemia. She reports she was on iron previously, but has taken this intermittently and not recently due to stomach intolerance. She has not had any syncope or chest pain, but has felt lightheaded for about 1 month. She has had foamy brown diarrhea for 1 week, but no melena or blood. She does have epigastric tenderness. She is a vegetarian does not eat meat. She denies shortness of breath, difficulty breathing. No numbness/tingling. Denies other medical problems and chronic medications. Medical History: Reviewed Medications: Reviewed Surgical History: Reviewed Family history: Reviewed Allergies: Reviewed Social History: No tobacco/alcohol use Code Status: Full code Admission Exam Per Admitting Provider General: A&Ox3. NAD. Cooperative. HEENT: Atraumatic, normocephalic. Pale. Eom intact. vision/hearing intact Pulm: CTAB A&P. -wheezes, -rales, -rhonchi. Symmetrical chest rise. No increased work of breathing. No respiratory distress. Cardiac: RRR, -mrg. Radial pulses intact and symmetrical. Abdominal: +epigastric ttp. otherwise Nontender, nondistended, soft. BS present. Ext: warm, dry. Moves all extremities equally Principal Diagnosis Chronic Anemia Discharge Exam Constitutional: WD/WN, vitals as above Eyes: PERRL, conjunctivae normal, anicteric sclerae ENMT: external ear and nose normal, oropharynx normal Respiratory: normal respiratory effort, lungs clear to auscultation Cardiovascular: RRR, no murmur, no edema Gastrointestinal (Abdomen): Inspection/Auscultation: normal bowel sounds Percussion/Palpation: abdomen soft; abdomen nontender Multiple well-healing surgery scars on the abdominal wall Musculoskeletal: no cyanosis or clubbing, extremities motor strength 5/5 Skin: no rashes, warm and dry Psychiatric: A+Ox3, euthymic affect Discharge Data Allergies Allergy/AdvReac Type Severity Reaction Status Date / Time No Known Allergies Allergy Verified 01/21/23 18:02 Consultations 01/21/23 18:22 ED Decision to Admit Stat Procedures Performed Abdomen/Pelvis CT 01/21/23 16:[address] WITH IV CONTRAST CT DOSE: 235.09 mGy.cm HISTORY: Acute anemia with generalized abdominal pain anemia, abd pain TECHNIQUE: Multiaxial CT images of the abdomen and pelvis were performed following the IV administration of 82 cc of Optiray, A dose lowering technique was utilized adhering to the principles of ALARA. COMPARISON STUDY: None. FINDINGS: Clear lung bases. No pneumatosis or pneumoperitoneum. The spleen is mildly enlarged measuring up to 13 cm. Unremarkable pancreas, adrenal glands and liver. Patency of the hepatic and portal veins. Stone filled gallbladder. 1.2 cm stone noted within the gallbladder neck/proximal cystic duct. The gallbladder is distended. No significant wall thickening or pericholecystic fluid. There is mild intrahepatic biliary ductal prominence. The common bile duct measures 6 mm. No choledocholithiasis identified. Unremarkable kidneys. No hydronephrosis. Urinary bladder wall thickening with partial distention. Unremarkable uterus. Cystic foci of the left ovary measuring up to 2.7 cm. Probable associated hydrosalpinx. Aorta and IVC are unremarkable. No lymphadenopathy identified. Postoperative changes of the bowel with evidence of prior resection. Trace free pelvic fluid. The appendix is reportedly surgically absent. No acute fracture. 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 IMPRESSION: 1. No bowel obstruction or bowel wall thickening. 2. Stone filled distended gallbladder with large stone within the gallbladder neck/proximal cystic duct. Correlation with right upper quadrant abdominal ultrasound recommended to exclude developing acute cholecystitis. 3. Mild intrahepatic biliary ductal prominence with the common bile duct m easuring within the upper limits of normal. No choledocholithiasis identified. 3. Mild splenomegaly. 4. Postoperative changes of the bowel. 5. Left ovarian cyst/follicles with probable hydrosalpinx. ACT 112: Negative or not required by law. The above report was generated using voice recognition software. It may contain grammatical, syntax or spelling errors. Electronically signed by: Vazquez Oliveira M.D. 01/21/2023 5:33 PM Ordered Studies Abnormal lab results 01/21/23 01/21/23 01/21/23 Range/Units 13:49 13:49 22:15 Hgb 8.4 L (12.0-16.0) g/dl Hct 28.0 L (37.0-47.0) % Chloride (98-107) mmol/L BUN (6-23) mg/dl BUN/Creatinine Ratio (10-20) Calcium (8.6-10.3) mg/dl Iron < 10 L (35-150) mcg/dl Unsaturated IBC 443 H (155-355) mcg/dl Ferritin 1.7 L (8-388) ng/ml Total Bilirubin (0.2-1.0) mg/dl Direct Bilirubin (0-0.2) mg/dl Crossmatch See Detail 01/21/23 01/22/23 01/22/23 Range/Units 22:15 04:25 04:25 Hgb 7.6 L (12.0-16.0) g/dl Hct 24.5 L (37.0-47.0) % Chloride 108 H (98-107) mmol/L BUN 5 L (6-23) mg/dl BUN/Creatinine Ratio 7.4 L (10-20) Calcium 8.2 L (8.6-10.3) mg/dl Iron (35-150) mcg/dl Unsaturated IBC (155-355) mcg/dl Ferritin (8-388) ng/ml Total Bilirubin 1.7 H D (0.2-1.0) mg/dl Direct Bilirubin 0.4 H (0-0.2) mg/dl Crossmatch 01/22/23 Range/Units 10:34 Hgb 7.8 L (12.0-16.0) g/dl Hct 25.5 L (37.0-47.0) % Chloride (98-107) mmol/L BUN (6-23) mg/dl BUN/Creatinine Ratio (10-20) Calcium (8.6-10.3) mg/dl Iron (35-150) mcg/dl Unsaturated IBC (155-355) mcg/dl Ferritin (8-388) ng/ml Total Bilirubin (0.2-1.0) mg/dl Direct Bilirubin (0-0.2) mg/dl Crossmatch 01/21/23 16:55 CT Abd and Pelvis [CT abd pelvis IV con only] Stat Hospital Course (1) Symptomatic anemia: (2) GERD (gastroesophageal reflux disease): Plan Severe Chronic anemia Patient denies melena/bright red blood per rectum, epistaxis and other bleeding CTA/P without signs of acute bleeding. Stone filled gallbladder without evidence of acute obstruction. No transaminitis, no right upper quadrant tenderness on exam. No signs of extravasation or active bleeding. Hemoglobin 5.6 and profoundly microcytic Vegetarian diet, has previously been on iron and has required blood transfusions but had stopped iron due to constipation/stomach intolerance Is with splenomegaly, no known history of G6PD/hemoglobinopathies. Does have epigastric tenderness to palpation, and reports she has had liquid brown and sometimes foamy diarrhea in the last week Iron studies revealed a low iron and low ferritin. B12/folate normal. 2 units PRBC's transfused. Hemoglobin of 7.8 at time of discharge. - Gave Venofer 300 mg prior to discharge. OTC iron tablet daily until seen by PCP. Celiac testing ordered and were pending at time of discharge patient should follow-up with PCP regarding results of these labs. Continue PPI will increase to twice daily as needed. Pantoprazole 40 mg sent to pharmacy for patient. Should have repeat h/h postdischarge. - Further anemia work up as outpatient. Total Time Total Time Spent Total Time Spent (In Minutes): 20 Discharge Plan Discharge Items Patient Disposition: Home - Home Health Services Reason For Visit: ANEMIA Discharge Diagnosis: Chronic anemia Activity: Resume your previous activity Non-emergency contact: Primary Care Provider Call non-emergency contact if: you have any medication questions, your pain is worsening, your pain is unusual for you and your temperature is above 101.5 Follow-up/Referrals: [facility] [Primary Care Provider] - (You will need to call and make your follow up appt. [place] unable to reach anyone at [facility] to schedule.) Diet: Regular Addtl Attending Provider Instructions: You were admitted to the hospital for anemia (low blood hemoglobin counts). You were treated with a blood transfusion and intravenous iron. You have clinically improved and we feel it is safe for you to return home. A discharge summary will be sent to your primary care physician to ensure continuity of care. Please bring this discharge summary with you to your next office appointment so that your provider can review it at that time. Follow-up appointments: We have requested a follow-up appointment with your primary care physician ([facility]) within one week of discharge. Please call their office if you do not hear from them by Friday. Their phone number is [phone]. Keep all your follow-up appointments as already scheduled. If you cannot make an appointment, notify your provider. Medications: Your medication list has been reviewed and reconciled upon discharge to ensure accuracy and continuity of care. An updated list of all your medications is included with your hospital discharge paperwork. * We sent a new medication called pantoprazole (aka Protonix) to your pharmacy. Take pantoprazole (40mg) one tablet once daily for one week. When you follow up with S, they can help you decide whether or not to continue this medication. Take your medications as instructed; do not skip a dose of your medicines. Make sure all of your doctors know every medicine you are taking (including [id number] medicines, vitamins, and supplements). Call your primary care provider before taking any new medicines (including [id number] medicines, vitamins, and supplements), because some of these may interact with your current medications, or may make your symptoms worse. Tell your primary care provider if you cannot afford your medications. CONTACT YOUR PRIMARY CARE PROVIDER if you experience any of the following: Lightheadedness or dizziness Shortness of breath, with or without exertion Difficulty following your treatment plan, or difficulty taking medications CALL 911 OR GO TO THE EMERGENCY DEPARTMENT if you experience any of the following: Sudden, severe abdominal pain or nausea/vomiting Severe chest pain, or chest pain that radiates (moves) to your jaw or arm Sudden, severe shortness of breath or difficulty breathing Thank you for allowing us to participate in your care. Pending Studies at Discharge: Yes Studies:: Celiac labs Stand-Alone Forms: My [facility] Medications and DC Order Prescriptions: New pantoprazole [Protonix] 40 mg tablet,delayed release (DR/EC) 40 mg PO DAILY Qty: 7 0RF Continued Acid Supersonic Engineer Tablet 1 tab PO DIRECTED PRN (Reason: HEARTBURN/INDIGESTION) Rx Instructions: PER PT "BROUGHT MEDICINE FROM HOME, MARKO". PT UNSURE WHICH HEEL ROOM SUPERVISOR OR WHICH STRENGTH OF MEDICATION. Discharge Orders: Discharge Order (Routine); Ordered 01/22/23 Ordered By: Aramis Mathur Admission Data Admit Date/Time: 01/21/23 18:24 Attending Provider: Annie Alcala Admit Provider: Sanjay Joyce Primary Care Provider: [facility] Other Providers: Sanjay Joyce Other Interventions: Discharge Summary Assessment (RN) Last Done: 01/22/23 16:54 Supervising Physician Co-Signing Physician Notes Resident Physician Supervision Note: I independently interviewed and examined the patient and verified the amaral history and physical, reviewed labs and image studies and agree with resident findings and care plan. Resident Activity Tracking Resident Involvement: Resident Care Provided Care Provided: [facility]
[2023-01-24 01:17] LABS: IgA Serum 198 mg/dL (47-310); Tis Trans IgA <1.0 U/mL
== END 2023-01-22 17:41 | disposition home or self-care (01) | DRG 812 ==
LOC: ED 13:08 → SUATTDRO 18:24 → 2S 18:24